=== PATIENT | female | born 1970 | race Caucasian/White ===

== ENCOUNTER → 2017-10-14 | Outpatient (CLI) | payer MEDICARE | END | disposition home or self-care (01) | LOC: RAH 10-11 11:25 | PROVIDERS: ATTEND Internal Medicine | DX: M65.231 Calcific tendinitis, right forearm (principal) | CPT/HCPCS: 73200 ==

== ENCOUNTER → 2019-06-18 | Outpatient (CLI) | payer MEDICARE | END | disposition home or self-care (01) | LOC: OIH 16:08 | PROVIDERS: ATTEND Internal Medicine | DX: M19.041 Primary osteoarthritis, right hand (principal) | CPT/HCPCS: 73120 ==

== ENCOUNTER → 2024-06-15 | Outpatient (CLI) | payer MEDICARE ==
--- NOTE | 2024-06-15 16:59 | HMCIMG ---
FOREARM 2VWS RT REASON: RT FOREARM PAIN TECHNIQUE: 2 views were obtained. FINDINGS: There is no evidence of fracture or dislocation. There is no joint effusion. The soft tissues appear unremarkable. There is no evidence of a radiopaque foreign body. IMPRESSION: No acute findings.
--- NOTE | 2024-06-15 16:59 | HMCIMG ---
HAND 2+VWS RT LIMITED REASON: RT HAND PAIN TECHNIQUE: 2 views were obtained. FINDINGS: There is no evidence of fracture or dislocation. There is no joint effusion. The soft tissues appear unremarkable. There is no evidence of a radiopaque foreign body. IMPRESSION: No acute findings.
--- NOTE | 2024-06-15 16:59 | HMCIMG ---
WRIST 2VWS RT REASON: RT WRIST PAIN TECHNIQUE: 2 views were obtained. FINDINGS: There is no evidence of fracture or dislocation. There is no joint effusion. The soft tissues appear unremarkable. There is no evidence of a radiopaque foreign body. IMPRESSION: No acute findings.
== END | disposition home or self-care (01) ==
LOC: RAH 16:00
PROVIDERS: ATTEND Internal Medicine
DX: M25.531 Pain in right wrist (principal); M79.631 Pain in right forearm; M79.641 Pain in right hand
CPT/HCPCS: 73090; 73100; 73120